=== PATIENT | female | born 1995 | race African-American/Black ===

== ENCOUNTER 2023-08-12 13:20 | Emergency (ER) | payer MEDICAID ==
[~2023-08-12] VITALS: Ht 162.5 cm; Wt 72.3 kg
--- NOTE | 2023-08-12 13:43 | ED Abdominal Pain ---
General Chief Complaint: (<6 weeks) Stated Complaint: CRAMPING | WEAKNESS Nursing Triage Note: PT AMB TO [facility] WITH COMPLAINT OF INFECTED SUTURES AFTER DELIVERY. STATES SHE DELIVERED VAGINALLY ON Jul. WENT TO OB TODAY AND WAS TOLD HER SUTURES LOOKED INFECTED AND NEEDED TO COME TO ER FOR FURTHER EVALUATION. Source of Information: Patient Exam Limitations: No Limitations History of Present Illness Date Seen by Provider: Aug 12, 2023 Time Seen by Provider: 13:30 Initial Comments 27-year-old female presents to the ER with concern of vaginal infection. Patient had a spontaneous vaginal delivery at 41 weeks gestation on August 03. She states that she went to see the nurse practitioner of her VETERINARY ATTENDANT today who told her she has a vaginal infection. She states that the nurse practitioner told her to come to the ER for further evaluation. She states that today she is having mild lower abdominal pain, states that 2 days ago it was much more severe. Her baby was delivered by Dr. Emerson, at [facility]. She sees Dr. Moncada, VETERINARY ATTENDANT, at [place] in [place]. Allergies and Home Medications Allergies Coded Allergies: No Known Drug Allergies (Unverified , 08/12/23) Patient Home Medication List Home Medication List Reviewed: Yes Amoxicillin/Potassium Clav (Amox Tr-K Clv 875-125 mg Tab) 875 Mg-125 Mg Tablet, 1 EACH PO BID Prescribed by: Margaret Harrison on 08/12/231739 Metronidazole (Metronidazole) 500 Mg Tablet, 500 MG PO BID Prescribed by: Margaret Harrison on 08/12/231739 Review of Systems Review of Systems Constitutional: see HPI Past Btjqoku-Pfumit-Jzdbza Hx Patient Social History Tobacco Use?: No Use of E-Cig and/or Vaping dev: No Substance use?: No Alcohol Use?: No Pt feels they are or have been: No Physical Exam Vital Signs Vital Signs - First Documented 08/12/23 13:26 Temp 36.9 Pulse 89 Resp 18 B/P (MAP) 141/88 (105) Pulse Ox 99 O2 Delivery Room Air Capillary Refill : Less Than 3 Seconds Height/Weight/BMI Height: '" Weight: lbs. oz. kg; 27.00 BMI Method: General Appearance: WD/WN, no apparent distress Neck: supple, normal inspection Respiratory: lungs clear, normal breath sounds, no respiratory distress, no accessory muscle use Cardiovascular: regular rate, rhythm Gastrointestinal: normal bowel sounds, soft; No guarding; tenderness (Left lower quadrant) Extremities: normal range of motion, normal inspection Pelvic: normal external exam, discharge (Large amount), tender w/ cervical motion, other (Friable cervix) Neurologic/Psychiatric: alert, normal mood/affect Skin: normal color, warm/dry Progress/Results/Core Measures Results/Orders Lab Results Laboratory Tests Test 08/12/23 15:18 08/12/23 15:30 Range/Units White Blood Count 9.8 4.3-11.0 10^3/uL Red Blood Count 4.01 3.80-5.11 10^6/uL Hemoglobin 10.4 L 11.5-16.0 g/dL Hematocrit 34 L 35-52 % Mean Corpuscular Volume 84 80-99 fL Mean Corpuscular Hemoglobin 26 25-34 pg Mean Corpuscular Hemoglobin Concent 31 L 32-36 g/dL Red Cell Distribution Width 16.1 H 10.0-14.5 % Platelet Count 328 130-400 10^3/uL Mean Platelet Volume 8.8 L 9.0-12.2 fL Immature Granulocyte % (Auto) 0 % Neutrophils (%) (Auto) 78 H 42-75 % Lymphocytes (%) (Auto) 13 12-44 % Monocytes (%) (Auto) 6 0-12 % Eosinophils (%) (Auto) 2 0-10 % Basophils (%) (Auto) 0 0-10 % Neutrophils # (Auto) 7.7 1.8-7.8 10^3/uL Lymphocytes # (Auto) 1.3 1.0-4.0 10^3/uL Monocytes # (Auto) 0.5 0.0-1.0 10^3/uL Eosinophils # (Auto) 0.2 0.0-0.3 10^3/uL Basophils # (Auto) 0.0 0.0-0.1 10^3/uL Immature Granulocyte # (Auto) 0.0 0.0-0.1 10^3/uL Sodium Level 143 135-145 MMOL/L Potassium Level 3.2 L 3.6-5.0 MMOL/L Chloride Level 108 H 98-107 MMOL/L Carbon Dioxide Level 22 21-32 MMOL/L Anion Gap 13 5-14 MMOL/L Blood Urea Nitrogen 8 7-18 MG/DL Creatinine 0.76 0.60-1.30 MG/DL Estimat Glomerular Filtration Rate 110 BUN/Creatinine Ratio 11 Glucose Level 77 70-105 MG/DL Calcium Level 9.2 8.5-10.1 MG/DL Corrected Calcium 9.8 8.5-10.1 MG/DL Total Bilirubin 1.0 0.1-1.0 MG/DL Aspartate Amino Transf (AST/SGOT) 12 5-34 U/L Alanine Aminotransferase (ALT/SGPT) 11 0-55 U/L Alkaline Phosphatase 95 40-136 U/L Total Protein 7.7 6.4-8.2 GM/DL Albumin 3.3 3.2-4.5 GM/DL Micro Results Microbiology 08/12/23 Wet Prep - Final, Complete My Orders Orders - MARGARET BARBOUR APRN Pelvic (Non Ob)20870 (08/12/23 13:49) Ed Iv/Invasive Line Start (08/12/23 15:19) Cbc And Automated Diff (08/12/23 15:19) Comprehensive Metabolic Panel (08/12/23 15:19) Wet Prep (08/12/23 15:20) Neisseria Gonorrhea Swab (08/12/23 15:20) Chlamydia Trachomatis Swab (08/12/23 15:20) Gentamicin (Adult) Injection (Gentamicin (08/12/23 16:15) Clindamycin 900 Mg/50 Ml Ivpb (Clindamyc (08/12/23 16:15) Amoxicillin/Clavulanate Tablet (Amoxicil (08/12/23 17:45) Metronidazole Tablet (Metronidazole Tabl (08/12/23 17:45) Medications Given in ED Current Medications Medications Dose Ordered Sig/Krishna Route Start Time Stop Time Status Last Admin Dose Admin Amoxicillin/ Clavulanate Potassium 875 mg ONCE ONCE PO 08/12/23 17:45 08/12/23 17:46 DC 08/12/23 17:47 875 MG Clindamycin Phosphate/Dextrose 50 ml @ 100 mls/hr ONCE ONCE IV 08/12/23 16:15 08/12/23 16:44 DC 08/12/23 16:33 100 MLS/HR Metronidazole 500 mg ONCE ONCE PO 08/12/23 17:45 08/12/23 17:46 DC 08/12/23 17:48 500 MG Vital Signs/I&O 08/12/23 08/12/23 13:26 17:51 Temp 36.9 Pulse 89 Resp 18 B/P (MAP) 141/88 (105) 130/89 Pulse Ox 99 O2 Delivery Room Air Blood Pressure Mean: 105 Progress Progress Note : Progress Note Patient seen and evaluated, resting comfortably in bed, no acute distress. Ultrasound ordered to assess for retained products. 1520 pelvic exam completed. Large amount of green-yellow discharge, friable cervix, moderate pain on bimanual exam. Lab work ordered including CBC and CMP. 1610 labs reviewed. White blood cell count normal 8.9. Neutrophil percentage slightly elevated 78. Hemoglobin decreased 10.4, hematocrit decreased 34. CMP shows slightly decreased potassium 3.2. Chloride elevated 108. Wet prep shows moderate WBCs, no clue cells, no yeast, no trichomonas. I called and spoke with Dr. Herron, VETERINARY ATTENDANT. He recommends admission with IV antibiotics including clindamycin and gentamicin. He would like me to place bridge orders. 1620 Plan of care discussed with patient. She states that she does not know if she can stay in the hospital due to lack of childcare. Patient is going to discuss with her aunt options for childcare. Patient informed that she can keep her in the hospital with her, but she would responsible for childcare during her stay. 1715 patient decided that she wants to leave AGAINST MEDICAL ADVICE. I called and spoke with Dr. Herron again. He states that IV antibiotics are the recommended treatment, oral antibiotics are not an appropriate treatment. I spoke with patient. I discussed the risks of leaving against medical advice including severe sepsis, septic shock, and . Patient states that she would be willing to be transferred to [facility] since it is closer to home and her aunt also lives closer to there and will be able to help. [address] Emerson, VETERINARY ATTENDANT on-call at [facility]. Dr. Emerson is also the provider who delivered her baby. She states that since patient does not have an elevated white count and has no fever, that she can be treated outpatient. She recommends treatment with Augmentin 875 mg twice a day for 7 days and Flagyl 500 mg twice a day for 7 days. She states that she will see the patient in her office on Tuesday. She said to let the patient know that if she develops a fever or becomes worse over the weekend, that she needs to be evaluated in the [place] ER. Dr. Emerson states that she is on-call all weekend, and will admit her to the hospital if she presents with worsening symptoms. Based on Dr. Emerson's recommendation, I will proceed with discharge. Plan of care discussed with patient. Patient is agreeable to discharge plan. Discharge instructions and return precautions provided. Departure Impression Primary Impression: Endometritis Disposition: HOME, SELF-CARE Condition: Stable Departure-Patient Inst. Decision time for Depature: 17:34 Referrals: CHRISTEN MONCADA MD (PCP/Family) Primary Care Physician Patient Instructions: Pelvic Inflammatory Disease (DC) Add. Discharge Instructions: Complete full course of both antibiotics as prescribed, do not stop taking them even if you begin to feel better. Do not drink alcohol while taking these antibiotics. Follow-up with Dr. Emerson on Tuesday, call the office first thing in the morning and let them know that Dr. Emerson wants to see you. If you develop a fever, or get worse over the weekend, you need need to be evaluated in the emergency room. We are happy to see you here, but for continuity of care, it is best for you go to [facility]. Dr. Emerson is on-call this weekend at [place]. Dr. Emerson's office information: [address] [place] [address] All discharge instructions reviewed with patient and/or family. Voiced understanding. Scripts Metronidazole (Metronidazole) 500 Mg Tablet 500 MG PO BID for 7 Days, #14 TAB 0 Refills Prov: MARGARET BARBOUR APRN 08/12/23 Amoxicillin/Potassium Clav (Amox Tr-K Clv 875-125 mg Tab) 875 Mg-125 Mg Tablet 1 EACH PO BID for 7 Days, #14 TAB 0 Refills Prov: MARGARET BARBOUR APRN 08/12/23 MARGARET BARBOUR APRN Aug 12, 2023 13:43
--- NOTE | 2023-08-12 15:21 | Diagnostic Imaging Report ---
PROCEDURE: US PELVIC (NON OB) TECHNIQUE: Multiple real-time grayscale images were obtained over the pelvis in various projections transabdominally. INDICATION: 9 days with left lower quadrant pain. The uterus is post gravid measuring 14.1 x 7.7 x 10.8 cm. Endometrium is thickened at 2.3 cm and heterogeneous. No significant vascularity is seen to suggest retained products of conception. The left ovary could not be visualized due to bowel gas. Right ovary measures 4.3 x 2.3 x 3.4 cm. There is blood flow to the right ovary. No adnexal mass or free fluid is detected. IMPRESSION: 1. Thickened endometrium of 2.3 cm and heterogeneity. This likely represents blood products. No abnormal vascularity is identified to suggest retained products of conception. No other significant abnormality is seen. Dictated by: Dictated on workstation # [id number]
[2023-08-12 15:37] LABS: BASOPHILS % (AUTO) 0 % (0-10); EOSINOPHILS # (AUTO) 0.2 10^3/uL (0.0-0.3); EOSINOPHILS % (AUTO) 2 % (0-10); HEMATOCRIT 34 % (35-52); HEMOGLOBIN 10.4 g/dL (11.5-16.0); LYMPHOCYTES # (AUTO) 1.3 10^3/uL (1.0-4.0); LYMPHOCYTES % (AUTO) 13 % (12-44); MEAN CORPUSCULAR HEMOGLOBIN 26 pg (25-34); MEAN CORPUSCULAR HGB CONC 31 g/dL (32-36); MEAN CORPUSCULAR VOLUME 84 fL (80-99); MEAN PLATELET VOLUME 8.8 fL (9.0-12.2); MONOCYTES # (AUTO) 0.5 10^3/uL (0.0-1.0); MONOCYTES % (AUTO) 6 % (0-12); NEUTROPHILS # (AUTO) 7.7 10^3/uL (1.8-7.8); NEUTROPHILS % (AUTO) 78 % (42-75); PLATELET COUNT 328 10^3/uL (130-400); WHITE BLOOD COUNT 9.8 10^3/uL (4.3-11.0)
[2023-08-12 15:49] LABS: ALBUMIN 3.3 GM/DL (3.2-4.5)
[2023-08-12 15:50] LABS: POTASSIUM 3.2 MMOL/L (3.6-5.0)
[2023-08-12 15:51] LABS: CALCIUM 9.2 MG/DL (8.5-10.1)
[2023-08-12 15:52] LABS: TOTAL PROTEIN 7.7 GM/DL (6.4-8.2)
[2023-08-12 15:55] LABS: CREATININE SERUM 0.76 MG/DL (0.60-1.30)
[2023-08-12] MEDS ORDERED: D5W IV SCH (16:15)
[2023-08-12] MEDS ORDERED: CLINDAMYCIN 900 MG/50 ML IVPB 50 ML IV ONE (16:15)
[2023-08-12] MEDS ORDERED: GENTAMICIN IV SCH (16:15)
[2023-08-12] MEDS ORDERED: AMOX1TAB12 PO (17:40)
[2023-08-12] MEDS ORDERED: METR-145 PO (17:40)
[2023-08-12] MEDS ORDERED: AMOXICILLIN/Clavulanate 875 MG TABLET PO ONE (17:45)
[2023-08-12] MEDS ORDERED: metroNIDAZOLE 500 MG TABLET PO ONE (17:45)
[2023-08-12 17:51] VITALS: BP 130/89
== END 2023-08-12 17:51 | disposition home or self-care (01) ==
LOC: ER 13:23
DX: O86.12 Endometritis following delivery (principal)
CPT/HCPCS: 36415; 76856; 80053; 85025; 87210; 87491; 87591